=== PATIENT | male | born 1935 | race Caucasian/White ===

== ENCOUNTER 2020-02-19 16:55 | Inpatient (IN) | payer OTHER ==
[~2020-02-19] VITALS: Ht 182.9 cm; Wt 82.9 kg
--- NOTE | 2020-02-19 18:13 | NUR ---
PATIENT IS AN 85 YEAR OLD MALE, WHO ARRIVED TO THE SENIOR BEHAVIORAL UNIT FROM [facility] AT 1545HRS. PATIENT IS ALERT, AND ORIENTED X 1-2, ABLE TO MAKE NEED KNOWN. PATIENT ADMITTED TO ROOM 522 BED B. PATIENT WAS ANGRY/SAD UPON ARRIVAL TO THE UNIT. "WHO BROUGHT ME HERE?, AM GOING TO BE IN THE ROOM WITH SOMEONE? WHO SAID I SHOULD COME HERE? AM NOT GOING TO STAY IN ROOM WITH SOMEBODY, NO TELEVISION TO WATCH". PATIENT EDUCATED ON HOSPITAL RULES, AND NOTIFIED THAT THERE NO TELEVISIONS IN THE ROOMS, BUT THAT THERE IS TELEVISION IN THE COMMOM AREA HE CAN WATCH. ACCORDING TO REPORT, PATIENT WAS ADMITTED TO [facility] ON 02/17/20 WITH DX OF UMS, DEMENTIA WITH BEHAVIOR. PATIENT HAS MEDICAL HISTORY OF COPD, HLD, BPH, DVT, HTN. 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 REPORT ALSO STATES THAT PATIENT LIVED AT [facility] WITH MEALS PRIOR TO [facility] ADMISSION. REPORT STATES PATIENT IS PARANOID, THINKS PEOPLE ARE TRYING TO POISON HIM. PERSONAL BELONGINGS, MONEY/CARDS, PRINTING TABLE HAND'S LICEENSE SENT TO SECURITY. INHALAR SENT TO PHARMACY. PATIENT'S DAUGHTER -DPOA GAVE PHONE CONSENT TO TREAT, AND FALL PAPER WAS SIGNED. SECOND RN WITNESSED PHONE CONSENT. COVID-19 TEST DONE ON 02/16 WITH NEGATIVE RESULT PER REPORT. PTIENT DENIES SUICIDAL/HOMICIDAL IDEATION. HE DENIES DEPRESSION. OTHER THAN BEING IRRITABLE UPON ARRIVAL, NO AGGRESSION OR AGITATION NOTED AT THIS TIME. LCTA, RESP EVEN/UNLABORED, NO SOA/CYANOSIS NOTED. BS+X4, ABD SOFT, NON-TENDER TO TOUCH. MEDS VERIFIED WITHDR. BAY, WHO STATES HE WILL CONSULT DR. ABREU, CHEST X-RAY COMPLETED, AWAITING RESULT. PATIENT HAD SUPPER, CONSUMED 100%. CURRENTLY SITTING IN DAY ROOM WATCHING TV, WILL MONITOR FOR SAFETY.
[2020-02-19 19:35] VITALS: BP 143/62
[2020-02-19 20:18] VITALS: BP 148/83
--- NOTE | 2020-02-20 03:39 | NUR ---
Pt oriented to self. Knows he's in a hospital. Does not know the name of it. Pt was irritated and agitated at time of assessment, over his wallet. Pt unhappy that his wallet was taken from him. Nursing explained to pt that this is a lockdown unit and certain belongings were not allowed in the romm. Nursing explained that wallet has been taken and given to security to keep it safe. Pt was concerned that he had money and credit cards in his wallet. Nursing explained that inventory was taken before handing wallet to security and he would get it back prior to dc. Pt complained about missing dinner, boxed lunch was provided for pt, as well as desert. Pt was calm and ate his food. Pt took meds without hesitation. Pt stated that he takes stool softner in order to have a bm. Pt stated that his dtr was a pharmacist and would know the name of the medicine. Pt had a bm after eating and then he went to bed. At about 0045, pt woke up screaming, not making any sense. Pt reoriented to place and situation. Pt was able to calm down, use the bathroom and go back to sleep. Will continue to monitor.
[2020-02-20 06:34] LABS: ABSOLUTE NEUTROPHILS 2.4 thou/uL (1.4-8.2); BASOPHILS 1.2 % (0.0-2.0); EOSINOPHILS 6.1 % (0.0-3.0); HEMATOCRIT 39.4 % (42.0-52.0); HEMOGLOBIN 13.4 gm/dL (14.0-18.0); LYMPHOCYTES 35.4 % (24.0-44.0); MCH 30.7 pg (26.0-34.0); MCV 90.3 fL (80.0-100.0); MONOCYTES 8.1 % (1.0-8.0); PLATELET COUNT 230 thou/uL (150-400); POLYS 49.2 % (36.0-66.0); RBC 4.37 mil/uL (4.50-6.00); WBC 4.9 thou/uL (4.0-11.0)
[2020-02-20 06:50] LABS: CALCIUM 8.8 mg/dL (8.5-10.1); CREATININE 1.2 mg/dL (0.7-1.3); MAGNESIUM 2.3 mg/dL (1.8-2.4)
[2020-02-20 07:40] VITALS: BP 102/70
[2020-02-20 19:33] VITALS: BP 113/83
--- NOTE | 2020-02-20 22:57 | NUR ---
Care assumed of patient at 1915: Patient seated in dayroom at start of shift. Patient presents with labile, suspicious affect. Alert and oriented to person and place only. Confused and forgetful. Patient easily agitated and frustrated. When asked the date, patient became angry stating there was not a calendar anywhere. Patient shown the white board stating it had the date on it. Patient read it without difficulty then started to make the excuse that he didn't have his glasses. Patient states that he doesn't know why he is at the hospital. Demanding his wallet. Educated that it is locked up in security for safety. Patient calmed down and stated "that's good". 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 Patient frustrated that he is not able to control the positioning of the bed. Called staff several times to move head of bed and end up in the same position that it was. Patient ate 100% HS snack. Took HS medication without difficulty. Patient was able to retire to bed without difficulty and is resting quietly at this time.
[2020-02-21 07:50] VITALS: BP 88/61
--- NOTE | 2020-02-21 10:51 | NUR ---
Assumed care 0700. Denies pain. Self-fed breakfast.C/o constipation, received MOM. Name band updated to [facility] ID band. Ambulates well with steady gait. Breathing with shortness of breath after using restroom. Pt. states he is not having breathing difficulties. Later oon was seen breathing normally without difficulty. Denies SI/HI/AH/VH. No mention of delusional thinking. He emphasized he was 86 yo.
--- NOTE | 2020-02-21 16:12 | NUR ---
Unable to fully participate in S.W. group. Did speak briefly and had a contribution. Inquired about getting a mask. Encouraged to ask family or friends to bring him a mask. He said they would not do that and they do not call him to check on him. He declined to work on putting a puzzle together.
[2020-02-21 19:36] VITALS: BP 120/82
[2020-02-21 21:51] VITALS: BP 120/82
--- NOTE | 2020-02-22 01:55 | NUR ---
Assumed care of patient this pm shift. Patient resting in bed for his assessment. Patient calm and cooperative. Patients affect is blunted. Patient is alert and oriented to self. Patient takes medications whole with thin fluids and is medication adherent. Patient is continent of bowel and bladder. Patients assessment shows no signs of acute distress. Breath sounds clear, bowel sounds present, s1 s2 heard with auscultation. Patient has no concerns at this time. We will continue to monitor per hospital protocol.
[2020-02-22 07:16] VITALS: BP 98/65
--- NOTE | 2020-02-22 14:45 | NUR ---
6234 Herber was at the nurses station c/o stomach pain and needing to have a BM. He was not satisfied with the medication he was given by nursing staff 20 minutes prior. He had become agitated with his nurse (who was occupied with another patient) d/t not recieving the medication he preferred. I intervened d/t his nurse being occupied. Herber put his hands around his neck in a choking motion and stated, "Well I might as well just shoot myself!"
--- NOTE | 2020-02-22 18:34 | NUR ---
PT WAS BROUGHT IN FROM [facility] VIA [facility] @13:45.. PT RESPONDS TO DIRECTION AND FRIENDLY. DR Flores STARTED TO INTEVIEW PT AND THEN LEFT. PT WAS ORIENTATED TO ROOM WATER WAS GIVEN AND PT DID ASK FOR FOOD . DIETARY ORDERS PT IN, WHEN FOOD WAS PUT BEFORE THE PT HE SAID 'IM NOT HUNGERY' PT WAS STARTED TO BE INTERVIERD BY THIS NURES. AND CONSENTS TRIED TO BE SIGNED. PT LOOKED BLANK, AND WOULD SAY 'I DONT KNOW' TO QUESTIONS REPEATEDLY. OBTAINED. I REPEATED WHAT THE PAPER CONSENT WERE FOR AND TRIED TO EXPLAIN AND THE ANSWER WAS THE SAME.AND HIS HAND WOULD NOT MOVE. CONSENTS WERE NOT OBTINED DR Flores AWARE OF THIS.
[2020-02-22 19:31] VITALS: BP 113/84
[2020-02-22 21:56] VITALS: BP 113/84
--- NOTE | 2020-02-23 04:14 | NUR ---
PATIENT HAS BEEN SLEEPING IN HIS BED SINCE HE WENT TO BED AROUND 2129. BED IS IN LOW POSITION. PT DENIED PAIN. PATIENT DID DISCUSS HOW HIS WALLET WAS TAKEN FROM HIM WHEN HE ARRIVED ON UNIT AND WANTED TO KNOW WHY AND WHERE IT WAS. THIS WAS EXPLAINED TO HIM THAT WALLET IS IN SECURITY OFFICE SAFE. PATIENT IS OBSESSED ABOUT HIS MEDS FOR HIS BM. HE WANTED TO MAKE SURE HE WAS GETTING THE "POWDER STUFF" THAT HIS DAUGHTER/DPOA WHO IS A PHARMACIST RECOMMENDED. TOLD HIM HE WILL GET IN THE MORNING AT BREAKFAST. HE STATES HE LIKES TO TAKE IT IN HIS COFFEE. BED IN LOW POSITION. CONTINUING TO MONITOR.
--- NOTE | 2020-02-23 05:00 | NUR ---
PATIENT AWOKE AROUND 0430 TODAY AND CAME OUT TO THE DINING ROOM. HE STRETCHED AND WALKED AROUND BEFORE RETURNING TO HIS BED 20 MINUTES LATER. HE STATES HE WAS JUST SEEING WHAT TIME IT WAS AND WHAT WAS GOING ON. PATIENT IS IN BED RESTING NOW.
[2020-02-23 07:24] VITALS: BP 151/76
--- NOTE | 2020-02-23 10:06 | NUR ---
ASSUMED CARE AT 0700. PT. UP, DRESSED AND ON THE UNIT. SHE IS PLEASANT AND COOPERATIVE WITH ASSESSMENT AND TAKING MEDICATION. SHE IS ORIENTED TIMES 1 ONLY. HER LUNGS ARE CTA, RRR, HRR, ABD. SOFT. SHE STATED SHE HAD A BM YESTERDAY. PEDAL PULSES + AND EQUAL BILATERALLY. SHE ATTENDED MORNING GROUP.
--- NOTE | 2020-02-23 12:47 | NUR ---
JERRICA sat with pt to obtain information about him. 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 He said he has plenty of money in the bank. JERRICA asked him about him living in an [place]. He said he lives in his own home. His hospital documentation notates that he just moved to a facility but does not indicate which one. He told JERRICA and Dr. Blanco that they could contact his daughter. JERRICA contacted [facility]. No answer. JERRICA lft msg. JERRICA team will continue to follow pt during his stay on this unit.
--- NOTE | 2020-02-23 16:18 | NUR ---
HAS BEEN HYPERVERBAL AT TIMES THIS SHIFT-RAISED VOICE TO INSISTING THAT HE DID NOT NEED TO BE HERE AND NEEDED TO GO-LATER IN SHIFT BECAME MILDLY AGITATED AND BEGAN TO YELL AT STAFF THAT HE NEEDED A MASK AND WE WERE PUTTING HIM IN DANGER-STOPPING EVERYONE COMING DOWN HALLWAY AND ASKING THEM IF HE COULD BUY A MASK FROM THEM AND OFFERING 5 DOLLARS. DOES APPEAR CALMER DURING 1;1 INTERACTION WITH STAFF-REMAINS CIRCUMSTANTIAL AND OFTEN REPETITIVE IN CONVERSATION. GAIT STEADY WITHOUT ASSISTIVE DEVICES. DID TAKE PO MEDICATIONS WITHOUT RESISTANCE ALTHOUGH DOES STATE HE DOESN'T THINK HE NEEDS DEPAKOTE STATING "MY MOOD IS FINE" "I DO GET UPSET BUT JUST BECAUSE I AM HERE" DENIES PAIN. DENIES S/SH/HI. EATING WELL,
[2020-02-23 19:35] VITALS: BP 109/80
[2020-02-23 23:00] VITALS: BP 109/80
--- NOTE | 2020-02-24 04:22 | NUR ---
Assumed care of patient this pm shift. Patient is very pleasant with RN. Patient denies pain. Patient denies hi/si. Patients affect is euthymic. Patient is alert and oriented x4. Patient takes medications whole with thin fluids. Patient is medication adherent. Patient is not a falls risk and ambulates with a steady gait. Patients assessment shows no signs of acute distress. Breath sounds clear, bowel sounds hypoactive, s1 s2 heard with auscultation. Patient is dressed neatly in his own clothes and is very tidy. Patient did not voice any concerns this evening. We will continue to monitor patient per hospital policy.
[2020-02-24 07:22] VITALS: BP 101/58
--- NOTE | 2020-02-24 09:12 | NUR ---
[facility] 0700. Pleasant, cheerful mood. Does not understand why he is here. 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 He has concerns about his daughter getting into his affairs. Says he lives in a $780,000 house. Compliant with meds. He says I don't know what she is doing with regards to his house and his affairs. Oriented only to name. Other orientation questions are not important to him.
--- NOTE | 2020-02-24 10:57 | NUR ---
JERRICA received records from [facility] from [facility] via email. JERRICA printed them and gave them to Dr. Blanco. JERRICA reminded [facility] via email that she is in need of DPOA docs. JERRICA also faxed a referral to [facility] per [facility]'s request and notified her of doing such. JERRICA team will continue to follow pt during his stay on this unit.
--- NOTE | 2020-02-24 17:35 | NUR ---
Continues calm, cooperative. Confused as to why he is here. Is accepting of being here though would rather be home. Does not initiate conversation with peers. Appetite is good. Self feeds meals. Gait is steady. Denies SI/HI/AH/VH.
[2020-02-24 20:18] VITALS: BP 126/87
[2020-02-24 20:30] VITALS: BP 126/87
--- NOTE | 2020-02-25 02:16 | NUR ---
PATIENT WAS IN BED AT BEGINNING OF SHIFT AT 1900. HE STATES HE CAN ONLY STAND SO MUCH NOISE AND NEEDS TO GET AWAY. HE IS ALL OVER THE PLACE WITH HIS MOOD. HE STARTED OUT VERY PLEASANT WE WERE TALKING AND THEN BECAME SAD AND UPSET REGARDING HIS HOME AND ASSETS AND SAYS HIS DAUGHTER HAS NO LEGAL RIGHTS TO TAKE HIS HOME. HE THEN BECAME IRRITABLE WHEN ANOTHER PATIENT WAS SINGING LOUDLY IN THE HALLWAY. HE DENIES THAT HIS COGNITION AND MEMORY ARE IMPAIRED. HE STATES HE FORGETS THINGS BECAUSE HE HAS SO MUCH ON HIS MIND FAR RESPONSIBILITIES FOR HIS HOME AND FINANCES ARE CONCERNED. PATIENT DID CALM DOWN ENOUGH TO TAKE HIS HS MEDS. HE DENIES PAIN. HE DENIES SI/HI/AVH. HE DOESN'T THINK HE NEEDS TO BE HERE ANY LONGER AND THAT HE IS FINE. PATIENT GOT UP AROUND MIDNIGHT AND WALKED OUT TO THE DINING ROOM AND BACK. WHEN I ASKED HIM IF HE WAS GOING BACK TO BED HE STATED THAT HE DOESN'T HAVE A BED TO GO BACK TOO AND STATES IT WAS NO USE SINCE OTHER PATIENT'S ARE LOUD AND KEEP HIM AWAKE. HE WALKED BACK TO HIS ROOM AND WENT TO BED AND IS SLEEPING AT THIS TIME. ROUTINE ROUNDING TO ASSESS STATUS AND SAFETY OF PATIENT. BED IN LOW POSITION.
[2020-02-25 07:27] VITALS: BP 121/84
--- NOTE | 2020-02-25 08:53 | NUR ---
RT Progress Note- Herber is an active participant in both the milieu and recreation groups. 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 He tends to become frustrated with redirection but is accepting. He has not made any suicidal gestures or statements during groups, though as noted in previous notes, he had become frustrated with pain and made a passive suicidal statement earlier in the week.
--- NOTE | 2020-02-25 09:33 | NUR ---
HAS BEEN VISIBILE IN DAYROOM WITH PEER GROUP. DYSPHORIC MOOD -EXPRESSING FRUSTRATION OVER BEING HERE AND REPETITIVE IN ARGUMENTS ABOUT WHY HE DOESN'T NEED TO BE HERE. ORIENTED TO PERSON/HOSPITAL. GAIT STEADY WITHOUT ASSISTIVE DEVICES.
--- NOTE | 2020-02-25 14:11 | NUR ---
JERRICA contacted [facility] to arrange d/c Saturday. No answer. JERRICA lft msg for Aminata. JERRICA team will continue to follow pt during her stay on this unit.
[2020-02-25 19:30] VITALS: BP 139/99
[2020-02-25 22:50] VITALS: BP 139/99
--- NOTE | 2020-02-26 02:03 | NUR ---
Assumed care of patient this pm shift. Patient in good spirits calm and cooperative. Patients affect is euthymic. Patient is alert and oriented x3. Patient denies pain. Patient denies hi/si. Patient is medication adherent and takes medications whole with thin fluids. Patient is ambulatory with a steady gait. Patients assessment shows no signs of acute distress. Patient talked alot about his daughter and monitary items and seems to feel as though she has assumed his property while leaving him with a single bedroom apartment to live in. Patients assessment shows no signs of acute distress. Patient stated that he felt better after speaking with the nurse and apprecitated having someone to listen to him. We will continue to monitor per hospital policy.
[2020-02-26 07:30] VITALS: BP 116/79
--- NOTE | 2020-02-26 12:25 | NUR ---
Alert and orientated to person, hospital and partial day. Able to state he is in hospital but states he is at [facility]. Orientated to situation. Denies SI/HI. Conversive talking about family and prior career. Calm and cooperative. Breath sounds clear. Reg HR auscultated. Color pink with brisk capillary refill and palpable peripheral pulses. Independent with voiding. Active bowel sounds over soft, rounded abdomen. Last BM documented 02/24/20. Abmulates with regular, steady gait. Spent most of AM in dining room.
[2020-02-26 20:01] VITALS: BP 98/68
--- NOTE | 2020-02-26 22:14 | NUR ---
PT WALKING IN HALLS WITH MALE PEER. HUNCHED SHOULDERS STEADY GAIT. PT HAD SNACK AND WATCHED THE NEWS. PT COMPLIANT WITH HIS MEDS. BS ARE DECREASED. PT STATED PEOPLE HERE TALK TO MUCH. PT SAYS PLAN FOR DC ON SATURDAY.
[2020-02-27 07:49] VITALS: BP 130/77
--- NOTE | 2020-02-27 09:00 | NUR ---
Assumed care 0700. Pleasant, congenial with peers. Self feeds. Compliant with meds.
--- NOTE | 2020-02-27 18:03 | NUR ---
Has been walking in the hallway for exercise. Attended S.W. group, stated he enjoyed it. Covid 19 specimen was sent down to lab. No voiced concerns/complaints. No c/o pain. Looking forward to going home.
[2020-02-27 19:42] VITALS: BP 137/92
--- NOTE | 2020-02-27 22:32 | NUR ---
Care assumed of patient at 191: Patient seated in dayroom at start of shift. Patient interacting well with others, very social. Patient alert and oriented to person and place only. Patient having disorganized speech at times. Repetative in stories told. Patient confused and forgetful. Patient reports that he is excited about returning home Saturday. Patient became irritable for a short moment when he was asked about being discharged to an assisted living facility. Patient stating that he has a $750,000 home with "amazing furniture" and that is where he will be going. States that his daughter and son in law are trying to take his money. Patient does not remember speaking with Dr. Blanco about discharging to an [facility]. Encouraged patient to speak with MD on Saturday. Patient factually stated "OK, I will do that" in a calm manner. Patient took HS medication whole without difficulty. Ate 100% HS snack. Independent with ADL completion. Patient retired to bed at a reasonable hour and is resting quietly at this time.
[2020-02-28 07:43] VITALS: BP 130/90
--- NOTE | 2020-02-28 14:28 | NUR ---
0700 ASSUMED CARE OF PATIENT, PATIENT IN BED AT THAT TIME. 0800 PATIENT TO DAYROOM FOR BREAKFAST, PATIENT EATING AND COMMUNICATING WELL WITH OTHERS. NO C/O PAIN, DENIES NEEDS. PATIENT TALKING ABOUT BEING DC'D ON 02/28 WITH FAMILY. MEDICATION TAKEN WHOLE WITHOUT DIFFICULTY. DENIES SI/HI/AH/VH. PATIENT OBSERVED WALKING THE [place]ES[place] BACK AND FORTH WITH ANOTHER PATIENT FOR EXERCISE. WILL CONTINUE TO OBSERVE
[2020-02-28 19:42] VITALS: BP 114/81
[2020-02-28 21:00] VITALS: BP 114/81
--- NOTE | 2020-02-28 23:16 | NUR ---
PATIENT SPOKE WITH THIS NURSE THAT HE IS TO DISCHARGE TOMORROW AND HE DOES NOT WANT HIS DAUGHTER OR OTHER FAMILY TO PICK HIM UP. HE STATES HE NEEDS THE SORENSEN TO HIS HOME TO GET IN WHEN HE GETS THERE. I TOLD HIM THAT A SPECIAL GROUND CREW SUPERVISOR WAS GOING TO BE TRANSPORTING HIM TO WHERE HE NEEDS TO GO. I TOLD HIM THAT WE WOULD WORRY ABOUT THE SORENSEN IN THE MORNING BUT I'M SURE ALL HAS BEEN SET UP. PATIENT IS GOING TO A FACILITY AND IS NOT ACCEPTING THIS. DID NOT BRING IT UP TO HIM AGAIN TONIGHT. PATIENT TOOK HIS MEDS WHOLE WITH WATER AND DENIES PAIN. HE IS A/0 X 2-3 AND IS FORGETFUL. HE SAT UP WATCHING TV IN DINING ROOM WITH ANOTHER MALE PATIENT TONMARTY. NO BEHAVIORS NOTED. DENIES PAIN, SI/HI/AVH. PATIENT IS INDEPENDENT WITH CARES. WILL CONTINUE TO MONITOR THRU ROUNDINGS. PATIENT DID EAT A HS SNACK.
--- NOTE | 2020-02-29 06:42 | NUR ---
PATIENT IS IRRITABLE THIS MORNING AND DEMANDING. HE INSISTS ON GETTING A STATEMENT THAT HE IS BEING RELEASED TODAY. STAFF MEMBER TOLD HIM HE NEEDS TO SPEAK WITH PADDER BUT THAT HE DOES NOT GET A STATEMENT PAPER. PATIENT WAS UP TWICE IN NIGHT D/T HIS ROOM MATE GOT HIM UP TO HELP HIM FIND THE WATER MACHINE. PATIENT IRRITABLE WHEN AWAKENED.
[2020-02-29 07:25] VITALS: BP 125/77
[2020-02-29 08:26] VITALS: BP 125/77
[2020-02-29] MEDS ORDERED: NORVASC5 MG PO (08:40)
[2020-02-29] MEDS ORDERED: DEPAKOTE SPRIN125 MG PO (08:40)
[2020-02-29] MEDS ORDERED: FLOMAX0.4 MG PO (08:40)
[2020-02-29] MEDS ORDERED: OLANZAPINE2.5 MG PO (08:41)
[2020-02-29] MEDS ORDERED: NAMENDA 5 MG TAB5 M1 PO (08:41)
[2020-02-29] MEDS ORDERED: MIRALAX17 GM PO (08:42)
[2020-02-29] MEDS ORDERED: COLACE 100 MG100 MG PO (08:42)
--- NOTE | 2020-02-29 09:20 | NUR ---
0700 ASSUMED CARE OF PATIENT, PATIENT IN ROOM AT THAT TIME. 0740 PATIENT TO DYROOM FOR BREAKFAST. PATIENT SITTING AT TABLE WITH OTHER PATIENTS COMMUNICATING WELL. PATIENT ASKING QUESTIONS REGARDING DISCHARGE, HOTEL AND DINING ROOM CASHIER DISCUSED THIS WITH PATIENT. 0825 MEDICATIONS GIVEN WHOLE WITHOUT DIFFICULTY. PATIENT UP WALKING IN LEDESMA FOR EXERCISE THIS AM. 0900 PATIENT ATTENDING GROUP.
--- NOTE | 2020-02-29 11:51 | NUR ---
SW D/C NOTE SW faxed to [facility] discharge documents including the POC form they provided. JERRICA will file docs in pt's hospital chart. No other needs for SW team to address at this time.
--- NOTE | 2020-02-29 14:03 | NUR ---
1215 SPOKE WITH PATIENT AND DISCUSSED DC TO [facility]. 1315 TRANSPORT VAN ARRIVED FOR PATIENT. PIPED POCKET MACHINE OPERATOR WALK INTO A DISCUSSION WITH PATIENT AND PACKAGING DESIGN ENGINEER, PATIENT REFUSING TO GO STATING "I AM NOT GOING THERE, I AM GOING HOME". PACKAGING DESIGN ENGINEER MENTIONED TO PIPED POCKET MACHINE OPERATOR THAT HE WILL NOT TRANSPORT IF PATIENT IS REFUSING TO BE DROPPED OFF AT [facility]. JERRICA KEANE AND PIPED POCKET MACHINE OPERATOR SPOKE WITH PATIENT TO CALM HIM DOWN AND EXPLAIN THE SITUATION BEST POSSIBLE WITH PATIENT NOT WILLING TO LISTEN. PATIENT STATING "I WANT TO CALL THE POLICE AND FBI". PATIENT CALMS DOWN AND AGREES TO GO WITH PACKAGING DESIGN ENGINEER TO [facility]. 1325 PATIENT TRANSPORTED VIA WC TO MEDICAL MALL ACCOMPANIED BY JERRICA. PIPED POCKET MACHINE OPERATOR TO SECURITY TO OBTAIN PT BELONGING THEN MET TRANSPORT VAN IN FRONT OF HOSPITAL. PATIENT CONTINUED TO ARGUE THE FACT ABOUT GOING TO THE FACILITY AND THE FACT THAT HIS DAUGHTER IS NOT HIS DPOA. PATIENT INTO VAN AND APEARED TO BE CALM. PATIENT WITH BELONGING IN HAND. 1146 REPORT GIVEN TO MARIJA CORDOVA FROM [facility].
== END 2020-02-29 13:46 | DRG 57 ==
LOC: SBH 16:55
PROVIDERS: Nurse Practitioner; ADMIT Psychiatry & Neurology Psychiatry; ATTEND Psychiatry & Neurology Psychiatry
DX: G30.9 Alzheimer's disease, unspecified (principal); F02.81 Dementia in other diseases classified elsewhere, unspecified severity, with behavioral disturbance; N18.3 Chronic kidney disease, stage 3 (moderate); F01.51 Vascular dementia, unspecified severity, with behavioral disturbance; N40.0 Benign prostatic hyperplasia without lower urinary tract symptoms; E78.5 Hyperlipidemia, unspecified; J44.9 Chronic obstructive pulmonary disease, unspecified; I25.10 Atherosclerotic heart disease of native coronary artery without angina pectoris; I12.9 Hypertensive chronic kidney disease with stage 1 through stage 4 chronic kidney disease, or unspecified chronic kidney disease; Z66 Do not resuscitate; Z86.718 Personal history of other venous thrombosis and embolism; Z88.8 Allergy status to other drugs, medicaments and biological substances; Z87.891 Personal history of nicotine dependence; Z79.899 Other long term (current) drug therapy; Z03.818 Encounter for observation for suspected exposure to other biological agents ruled out
CPT/HCPCS: 10880

== ENCOUNTER 2021-03-10 06:39 | Emergency (ER) | payer OTHER ==
[~2021-03-10] VITALS: Ht 203.2 cm; Wt 79.4 kg
--- NOTE | ~2021-03-10 | EMS ---
[address] [address] EMS Patient Care Report Name: MANAN BOUCHER [id number] Admission: 03/10/21 Attend Phys: Discharge: Date of : 37 Report #: [id number] THIS REPORT FOR: //name// Report Transmitted: 03/10/2021 07:12 EMS Care Summary [facility] MED-ACT Incident [id number] @ 03/10/2021 05:56 Incident Location [address] [place] [address] Patient MANAN BOUCHER Male, 86 Years 1935 Patient Address [address] [place] [address] Patient History Behavioral/Psychiatric Disorder,Chronic Obstructive Pulmonary Disease (COPD),Dementia,Hypertension (HTN),Hip Fracture,Chronic Kidney Disease,Enlarged prostate, Patient Allergies Carbamazepine,Other drug allergy, Patient Medications Omeprazole, Olanzapine, Metoprolol, Flomax, Voltaren, Trazodone, Xanax, Hydrocodone, Eliquis, Depakote, Chief Complaint he may have re-injured his hip Disposition Transported No Lights/[place] Dispatch Reason Falls Transported To [facility] Narrative Dispatched to a memory care facility for a male pt found seated on the hallway [address] [address] EMS Patient Care Report Name: MANNA BOUCHER Room #: REG Grey#: [id number] Admission: 03/10/21 Attend Phys: Discharge: Date of : 37 Report #: [id number] floor in front of his wheelchair. EMS arrived to find the pt alert though not oriented/tracking responders, seated in his wheelchair, with FD crew tending to him. FD reports that they lifted the pt from the floor tot he chair. Staff reports that the pt had a ground level fall and subsequent left hip fx 3 weeks prior that has been surgically repaired. They report that he has had several falls over the past week, all without noted injury. They suspect he is forgetting to remain in the wheelchair, as he was ambulatory prior to the hip fracture. They say that this morning he was found in front of the wheelchair (which remained upright), and that he appears to have slid onto the floor. Pt is at his baseline LOC/GCS per staff. They report that they are concerned that he may have reinjured his left hip this morning and would like him sent to the ER at [facility] for further evaluation. Pt does not grimace nor does he cry out/appear in pain upon palpation of his head, neck, back, torso, or extremities. He is lifted from the chair to the cot before being secured and moved to the ambulance for a no lights or sirens transport to [facility]. Pt rests without grimace or verbalized complaint while en route. He will not straighten his legs, preferring to keep them bent at the knee throughout. Pt lifted from the cot to the ER bed in room #5. Care transferred to waiting housekeeping staff. Initial Vitals @06:24P: 92,R: 14,GCS: 13,Revised Trauma: 12, @PTAP: 100,R: 16,BP: 126/60,Pain: 0/10,GCS: 13,Temp: 97.8F,SpO2: 95,Revised Trauma: 12, Impression Injury Procedures @06:20Surgical Mask on PatientResponse: Unchanged Timeline [employer],BP: 126/60 M,PULSE: 100,RR: 16 R,SPO2: 95 Ox,ETCO2: ,BG: ,PAIN: 0,GCS: 13, 05:54,Call Received 05:54,Psap Call 05:56,Dispatched 05:58,En Route 06:06,On Scene 06:11,At Patient 06:20,Surgical Mask on Patient,Response: Unchanged 06:22,Depart Scene 06:24,BP: 124/ M,PULSE: 92,RR: 14 R,SPO2: Ox,ETCO2: ,BG: ,PAIN: ,GCS: 13, 06:29,[place] [address] EMS Patient Care Report Name: MANAN BOUCHER Room #: REG PATRICE Toure.#: [id number] Admission: 03/10/21 Attend Phys: Discharge: Date of : 37 Report #: [id number] 07:06,Call Closed Disclaimer v1.1 Copyright 2020 [employer] This EMS Care Summary contains data elements from the applicable legal record (which may be displayed differently). It is designed to provide pertinent information for the following purposes: continuity of care, clinical quality, and state data reporting. The complete legal record is available to ED staff and administrators of the receiving hospital in [facility]'s Patient Tracker. All data is provided "as is."
[~2021-03-10 06:39] MED LIST: COLACE 100 MG100 MG PO; DEPAKOTE SPRIN125 MG PO; FLOMAX0.4 MG PO; MIRALAX17 GM PO; NAMENDA 5 MG TAB5 M1 PO; NORVASC5 MG PO; OLANZAPINE2.5 MG PO
[2021-03-10 12:31] LABS: ABSOLUTE NEUTROPHILS 1.9 thou/uL (1.4-8.2); BASOPHILS 1.4 % (0.0-2.0); EOSINOPHILS 7.2 % (0.0-3.0); HEMATOCRIT 28.9 % (42.0-52.0); HEMOGLOBIN 9.9 gm/dL (14.0-18.0); LYMPHOCYTES 29.7 % (24.0-44.0); MCH 30.6 pg (26.0-34.0); MCHC 34.2 g/dL (28.0-37.0); MCV 89.4 fL (80.0-100.0); PLATELET COUNT 274 thou/uL (150-400); POLYS 51.7 % (36.0-66.0); RBC 3.23 mil/uL (4.50-6.00); RDW 17.1 % (10.5-14.5); WBC 3.7 thou/uL (4.0-11.0)
[2021-03-10 12:37] LABS: POTASSIUM 3.8 mmol/L (3.5-5.1)
[2021-03-10 14:38] VITALS: BP 130/51
== END 2021-03-10 16:23 ==
LOC: ER 06:39
PROVIDERS: Emergency Medicine
DX: D32.9 Benign neoplasm of meninges, unspecified (principal); G30.9 Alzheimer's disease, unspecified; F02.80 Dementia in other diseases classified elsewhere, unspecified severity, without behavioral disturbance, psychotic disturbance, mood disturbance, and anxiety; I25.10 Atherosclerotic heart disease of native coronary artery without angina pectoris; I50.9 Heart failure, unspecified; I12.9 Hypertensive chronic kidney disease with stage 1 through stage 4 chronic kidney disease, or unspecified chronic kidney disease; N18.9 Chronic kidney disease, unspecified; Z91.09 Other allergy status, other than to drugs and biological substances; W05.0XXA Fall from non-moving wheelchair, initial encounter; Y93.89 Activity, other specified; Y92.89 Other specified places as the place of occurrence of the external cause; Y99.8 Other external cause status